=== PATIENT | female | born 1965 | race African-American/Black ===

== ENCOUNTER → 2019-03-27 | Outpatient (CLI) | payer BC ==
--- NOTE | 2019-03-27 14:31 | KCIC ---
BILATERAL SCREENING MAMMOGRAM History: Routine screening. Comparison: Bilateral mammogram November 25, 2014. Technique: Routine bilateral digital mammogram views were obtained. Findings: Breast Tissue Density C : The breasts are heterogeneously dense, which may obscure small masses. There are no dominant masses, suspicious microcalcifications, or architectural distortion. IMPRESSION: No mammographic evidence of malignancy. Recommend routine screening. BI-RADS category 1: Negative. The images were reviewed with computer aided detection. Patient information is entered into the reminder system with a target due date for the next screening mammogram. Mammography is the most sensitive method for finding small breast cancers, but it does not detect them all and is not a substitute for careful clinical examination. A negative mammogram does not negate a clinically suspicious finding and should not result in delay in biopsying a clinically suspicious abnormality. "Our facility is accredited by the [employer]ammography [employer]." Electronically signed by: Jono Razo MD (03/27/2019 2:29 PM) [id number]
== END | disposition home or self-care (01) ==
LOC: KCIC MAMMO 08:17
PROVIDERS: ATTEND Family Medicine
DX: Z12.31 Encounter for screening mammogram for malignant neoplasm of breast (principal)
CPT/HCPCS: 77067

== ENCOUNTER → 2019-10-15 | Outpatient (CLI) | payer OTHER ==
--- NOTE | 2019-10-15 12:22 | KCIC ---
Bilateral digital screening mammograms Reason for examination: Routine screening. Comparison is made to previous study dated March 27, 2019 and priors Routine CC and MLO digital views obtained. Interpretation was made with the benefit of CAD. The skin and nipples show no abnormalities. No abnormal lymph nodes are seen. The breast parenchyma is scattered fibroglandular elements. (Breast density: Category B.) There are no suspicious masses, suspicious calcifications or architectural distortions. Left outer breast posterior depth 3 mm oval circumscribed low-density nodule on the CC view is stable to 2014 likely a small lymph node, benign. Impression: Negative mammogram. Recommend routine screening. BI-RADS Category 1: Negative. "Our facility is accredited by the [employer] Mammography [employer]." This patient's information has been entered into a reminder system for the patient to be notified with the results of her examination and a target date for the next mammogram. Electronically signed by: Johnathan Barcenas MD (10/15/2019 12:19 PM) [email or web address]
== END | disposition home or self-care (01) ==
LOC: KCIC MAMMO 08:18
PROVIDERS: ATTEND Family Medicine
DX: Z12.31 Encounter for screening mammogram for malignant neoplasm of breast (principal); N64.89 Other specified disorders of breast
CPT/HCPCS: 77067

== ENCOUNTER → 2020-11-19 | Outpatient (CLI) | payer BC ==
--- NOTE | 2020-11-19 17:06 | KCIC ---
Reason for examination: Routine screening. Comparison is made to previous study dated October 15, 2019 and priors Routine CC and MLO digital views obtained. Interpretation was made with the benefit of CAD. Findings: The skin and nipples show no abnormalities. No abnormal lymph nodes are seen. There is a heterogenous element of fibroglandular tissue, which may obscure small masses. (Breast density: Category C.) Ther e are no suspicious masses, suspicious calcifications or architectural distortions. Impression: Negative mammogram. Recommend routine screening. BI-RADS Category 1: Negative. "Our facility is accredited by the [employer]ammography [employer]." This patient's information has been entered into a reminder system for the patient to be notified wit h the results of her examination and a target date for the next mammogram. Electronically signed by: Philippe Miller DO (11/19/2020 5:03 PM) [email or web address]
== END ==
LOC: KCIC MAMMO 13:32
PROVIDERS: ATTEND Family Medicine
DX: Z12.31 Encounter for screening mammogram for malignant neoplasm of breast (principal)
CPT/HCPCS: 77067